=== PATIENT | female | born 1955 | race Caucasian/White ===

== ENCOUNTER 2024-08-30 06:29 | Day surgery (SDC) | payer MEDICARE, SELFPAY ==
[2024-08-16 13:21] VITALS: BMI 27.4
[2024-08-16 13:46] LABS: Hematocrit 35.3 % (37.0-47.0); Hemoglobin 12.3 g/dL (12.0-16.0); Mean Corp Hgb Conc. 34.8 g/dL (33.0-37.0); Mean Corpuscular Hgb 29.8 pg (27.0-31.0); Mean Corpuscular Volume 85.5 fL (81.0-99.0); Mean Platelet Volume 9.6 fL (7.4-10.4); Platelet Count 205 10^3/uL (130-400); Red Blood Cell Count 4.13 10^6/uL (4.20-5.40); White Blood Cell Count 4.2 10^3/uL (4.8-10.8)
[2024-08-30] VITALS (7 sets, daily range): BP systolic 126–182; BP diastolic 61–89; BMI 27.4
[2024-08-30] MEDS: EMEND 40 MG PO (13:52)
[2024-08-30] MEDS: DILAUDID 0.25 MG IV (17:52)
== END 2024-08-30 19:07 | disposition home or self-care (01) ==
LOC: SDS 06:29
PROVIDERS: ATTENDING PHYSICIAN Otolaryngology; FAMILY PHYSICIAN Family Medicine
DX: H69.90 Unspecified Eustachian tube disorder, unspecified ear (principal); T85.698A Other mechanical complication of other specified internal prosthetic devices, implants and grafts, initial encounter; Y83.1 Surgical operation with implant of artificial internal device as the cause of abnormal reaction of the patient, or of later complication, without mention of misadventure at the time of the procedure
CPT/HCPCS: 69436; 36415; 85027; 93005